=== PATIENT | female | born 1975 | race Caucasian/White ===

== ENCOUNTER → 2017-09-10 | Outpatient (CLI) | payer OTHER ==
[~2017-09-10] MED LIST: BETAMETHASONE ACE/NA PHOS 6 MG/ML (CELESTONE SOLUSPAN) ONE; CEPH500C PO; MULT-35 PO; PREN-37 PO
--- NOTE | 2017-09-10 15:52 | Diagnostic Imaging Report ---
INDICATION: Hypertension and evaluate growth. TECHNIQUE: Multiple real-time grayscale images were obtained over the gravid uterus. COMPARISON: None FINDINGS: There is a single live fetus in a transverse presentation with head to the maternal right. The placenta is anterior. Amniotic fluid index is 7.4 cm. heart rate was recorded at 132 beats per minute. Biophysical profile was performed with a score of 8/8. Biometrical measurements are as follows: Biparietal 8.49 cm, age 34 weeks 2 days. Head circumference 31.68 cm, age 35 weeks 5 days. Abdominal circumference 30.14 cm, age 34 weeks 1 days. Femur length 6.68 cm, age 34 weeks 3 days. Sonographic estimate age: 34 weeks 5 days. Sonographic estimated date of delivery: 10/17/2017. Estimated Weight: 2407 gm (+/- 352 gm). LMP percentile: N/A%. heart rate: 132 beats per minute. number: 1 of 1. IMPRESSION: Single live IUP at approximately 34 to 35 weeks gestational age. Biophysical profile score is 8/8. Dictated by: Dictated on workstation # [id number]
== END ==
LOC: RAD 14:04
PROVIDERS: ATTEND Family Medicine
DX: O44.43 Low lying placenta NOS or without hemorrhage, third trimester (principal); O16.3 Unspecified maternal hypertension, third trimester; Z3A.34 34 weeks gestation of pregnancy
CPT/HCPCS: 76805; 76819

== ENCOUNTER → 2017-09-11 | Outpatient (CLI) | payer OTHER ==
[~2017-09-11] MED LIST changes: -BETAMETHASONE ACE/NA PHOS 6 MG/ML (CELESTONE SOLUSPAN) ONE
== END ==
LOC: WSo 16:39
PROVIDERS: ATTEND Family Medicine
DX: Z36.84 Encounter for antenatal screening for fetal lung maturity (principal)
CPT/HCPCS: 96372

== ENCOUNTER → 2017-09-12 | Outpatient (CLI) | payer OTHER | LOC: WSo 17:10 | PROVIDERS: ATTEND Family Medicine | DX: Z36.84 Encounter for antenatal screening for fetal lung maturity (principal) | CPT/HCPCS: 96372 ==

== ENCOUNTER 2017-09-17 19:00 | Inpatient (IN) | payer OTHER ==
[~2017-09-17] VITALS: Ht 168.9 cm; Wt 67.8 kg
[2017-09-17 19:15] VITALS: BP 154/78
[2017-09-17] MEDS ORDERED: D5 LR IV SOLUTION 1,000 ML IV ONE (19:16)
--- OUTSIDE RECORDS SUMMARY | 2017-09-17 19:18 | XMS REPORT | Continuity of Care Document ---
Author Author [facility] Organization [facility] Address Unknown Phone Unavailable Care Team Providers Care Distribution Spec Name Role Phone SYED FIERRO MD PCP Insurance Providers Payer Name Policy Number Subscriber Name Relationship [employer] [id number] Dian Adam 19 Self / Same As Patient Advance Directives Directive Response Recorded Date/Time Advance Directives No 03/16/15 1:00pm Health Care Power of Triage Licensed Practical Nurse No 03/16/15 1:00pm Organ Donor No 03/16/15 1:00pm Resuscitation Status Full Code 03/16/15 1:00pm Problems No problem information available. Medications Current Home Medications Medication Dose Units Route Directions Days/Qty Instructions Start Date Multivitamin 1 Each 1 Tab Oral Daily 03/16/15 Cephalexin 500 Mg 500 Mg Oral Three Times A Day as needed for Sc 21 Social History Social History Problem Response Recorded Date/Time Alcohol Use Occasionally Uses 03/16/2015 1:00pm Recreational Drug Use No 03/16/2015 1:00pm Recent Foreign Travel No 03/16/2015 1:00pm Recent Infectious Disease Exposure No 03/16/2015 1:00pm Hospitalization with Isolation Denies 03/19/2015 11:50am Smoking Status Never a Smoker 03/16/2015 1:00pm Query Response Start Date Stop Date Smoking Status Never a Smoker Hospital Discharge Instructions No hospital discharge instructions. Plan of Care Discharge Date 03/19/15 11:10am Disposition 30 STILL A PATIENT Instructions/Education Provided Urinary Tract Infection in Women (DC) Prescriptions See Medication Section Additional Instructions/Education -DRINK PLENTY OF FLUIDS -CHECK TEMPERATURE, IF INCREASED FOLLOW UP WITH DR FIERRO OR GO TO ER -FOLLOW UP WITH DR FIERRO IN 1 WEEK. Functional Status Query Response Date Recorded Patient Orientation Person Place Time Situation March 19, 2015 11:50am Allergies, Adverse Reactions, Alerts Allergen Type Severity Reaction Status Last Updated Codeine Allergy Mild NAUSEA Active 03/16/15 Immunizations No immunization records. Vital Signs Acute Vital Signs Vital Response Date/Time Temperature (Fahrenheit) 96.6 degrees F (97.6 - 99.5) 03/19/2015 11:13am Temperature (Calculated Celsius) 35.41613 degrees C (36.4 - 37.5) 03/19/2015 6:13am Temperature Source Temporal 03/19/2015 11:13am Pulse Rate (adult) 67 bpm (60 - 90) 03/19/2015 11:13am Respiratory Rate 20 bpm (12 - 24) 03/19/2015 11:13am O2 Sat by Pulse Oximetry 96 % (88 - 100) 03/19/2015 11:13am Blood Pressure 109/71 mm Hg 03/19/2015 11:13am Blood Pressure Mean 84 mm Hg 03/19/2015 6:13am Pain Pain Intensity 0 03/19/2015 6:13am Height (Feet) 5 feet 03/16/2015 1:00pm Height (Inches) 6.00 inches 03/16/2015 1:00pm Height (Calculated Centimeters) 167.042736 cm 03/16/2015 1:00pm Weight (Pounds) 115 pounds 03/19/2015 6:13am Weight (Ounces) 12.8 oz 03/19/2015 6:13am Weight (Calculated Grams) 44452.997 gm 03/19/2015 6:13am Weight (Calculated Kilograms) 52.935608 kilograms 03/19/2015 6:13am Calculated BMI 18.56 03/16/2015 1:00pm Results Laboratory Results Test Name Result Units Flags Reference Collection Date/Time Result Date/ Time Comments White Blood Count 11.0 10^3/uL 4.3-11.0 03/19/2015 5:34am 03/19/2015 6: 40am Red Blood Count 3.79 10^6/uL L 4.35-5.85 03/19/2015 5:34am 03/19/2015 6: 40am Hemoglobin 11.9 G/DL 11.5-16.0 03/19/2015 5:34a03/19/2015 6:40am Hematocrit 35 % 35-52 03/19/2015 5:34a 03/19/2015 6:40am Mean Corpuscular Volume 91 FL 80-99 03/19/2015 5:03/19/2015 6: 40am Mean Corpuscular Hemoglobin 31 PG 25-34 03/19/2015 5:34a 03/19/2015 6: 40am Mean Corpuscular Hemoglobin Concent 34 G/DL 32-36 03/19/2015 5:34a11/2014 6:40am Red Cell Distribution Width 13.6 % 10.0-14.5 03/19/2015 5: 2014 6:40am Platelet Count 262 10^3/uL 130-400 03/19/2015 5:34a 03/19/2015 6:40am Mean Platelet Volume 11.1 FL H 7.4-10.4 03/19/2015 5:34a 03/19/2015 6: 40am Neutrophils (%) (Auto) 88 % H 42-75 03/16/2015 1:16pm 03/16/2015 1:28pm Lymphocytes (%) (Auto) 3 % L 12-44 03/16/2015 1:16pm 03/16/2015 1:28pm Monocytes (%) (Auto) 9 % 0-12 03/16/2015 1:16pm 03/16/2015 1:28pm Eosinophils (%) (Auto) 0 % 0-10 03/16/2015 1:16pm 03/16/2015 1:28pm Basophils (%) (Auto) 0 % 0-10 03/16/2015 1:16pm 03/16/2015 1:28pm Neutrophils # (Auto) 25.4 X 10^3 H 1.8-7.8 03/16/2015 1:16pm 03/16/2015 1 :28pm Lymphocytes # (Auto) 0.8 X 10^3 L 1.0-4.0 03/16/2015 1:16pm 03/16/2015 1: 28pm Monocytes # (Auto) 2.5 X 10^3 H 0.0-1.0 03/16/2015 1:16pm 03/16/2015 1: 28pm Eosinophils # (Auto) 0.0 10^3/uL 0.0-0.3 03/16/2015 1:16pm 03/16/2015 1 :28pm Basophils # (Auto) 0.0 10^3/uL 0.0-0.1 03/16/2015 1:16pm 03/16/2015 1: 28pm Neutrophils % (Manual) 73 % 03/16/2015 1:16pm 03/16/2015 1:57pm Band Neutrophils 18 % 03/16/2015 1:16pm 03/16/2015 1:57pm Lymphocytes % (Manual) 5 % 03/16/2015 1:16pm 03/16/2015 1:57pm Monocytes % (Manual) 4 % 03/16/2015 1:16pm 03/16/2015 1:57pm Eosinophils % (Manual) 0 % 03/16/2015 1:16pm 03/16/2015 1:57pm Basophils % (Manual) 0 % 03/16/2015 1:16pm 03/16/2015 1:57pm Blood Morphology Comment NORMAL 03/16/2015 1:16pm 03/16/2015 1: 57pm Urine Color YELLOW 03/18/2015 10:18am 03/18/2015 8:40pm Urine Clarity CLEAR 03/18/2015 10:18am 03/18/2015 8:40pm Urine pH 7 5-9 03/18/2015 10:1803/18/2015 8:40pm Urine Specific [place] 1.010 * 1.016-1.022 03/18/2015 10:182014 8:40pm Urine Protein NEGATIVE NEGATIVE 03/18/2015 10:1803/18/2015 8:40pm Urine Glucose (UA) NEGATIVE NEGATIVE 03/18/2015 10:03/18/2015 8: 40pm Urine RBC (Auto) 4+ * NEGATIVE 03/18/2015 10:1803/18/2015 8:40pm Urine Ketones NEGATIVE NEGATIVE 03/18/2015 10:03/18/2015 8:40pm Urine Nitrite NEGATIVE NEGATIVE 03/18/2015 10:03/18/2015 8:40pm Urine Bilirubin NEGATIVE NEGATIVE 03/18/2015 10:18am 03/18/2015 8: 40pm Urine Urobilinogen NORMAL MG/DL NORMAL 03/18/2015 10:1803/18/2015 8: 40pm Urine Leukocyte Esterase 1+ * NEGATIVE 03/18/2015 10:18am 03/18/2015 8: 40pm Urine RBC 10-25 /HPF * 03/18/2015 10:18am 03/18/2015 8:40pm Urine WBC 5-10 /HPF * 03/18/2015 10:18am 03/18/2015 8:40pm Urine Bacteria FEW /HPF * 03/18/2015 10:18am 03/18/2015 8:40pm Urine Squamous Epithelial Cells 5-10 /HPF 03/18/2015 10:18am 2014 8:40pm Urine Crystals NONE /[facility] 03/18/2015 10:18am 03/18/2015 8:40pm Urine Amorphous Sediment FEW GARETH URATES /[facility] * 03/17/2015 5:35am 03/17 6:14am Urine Casts NONE /[facility] 03/18/2015 10:18am 03/18/2015 8:40pm Urine Mucus NEGATIVE /[facility] 03/18/2015 10:18am 03/18/2015 8:40pm Urine Culture Indicated NO 03/18/2015 10:1803/18/2015 8:40pm Sodium Level 140 MMOL/L 135-145 03/19/2015 5:34a03/19/2015 7:11am Potassium Level 3.1 MMOL/L L 3.6-5.0 03/19/2015 5:34a03/19/2015 7:11am Chloride Level 109 MMOL/L H 98-107 03/19/2015 5:34a03/19/2015 7:11am Carbon Dioxide Level 21 MMOL/L 21-32 03/19/2015 5:34a03/19/2015 7: 11am Anion Gap 10 MMOL/L 5-14 03/19/2015 5:34a03/19/2015 7:11am Blood Urea Nitrogen 12 MG/DL 7-18 03/19/2015 5:34a03/19/2015 7:11am Creatinine 0.59 MG/DL L 0.60-1.30 03/19/2015 5:34a03/19/2015 7:11am BUN/Creatinine Ratio 20 03/19/2015 5:34a03/19/2015 7:11am Estimat Glomerular Filtration Rate > 60 03/19/2015 5:34a2014 7:11am GFR INTERPRETIVE DATA UNITS FOR ESTIMATED GFR (eGFR): mL/min/1.73 M2 REFERENCE RANGE FOR ESTIMATED GFR (eGFR) eGFR NORMAL eGFR >60 MODERATELY DECREASED eGFR 30-59 SEVERLY DECREASED eGFR 15-29 KIDNEY FAILURE <15 (OR DIALYSIS) Glucose Level 87 MG/DL 70-105 03/19/2015 5:34am 03/19/2015 7:11am Calcium Level 8.2 MG/DL L 8.5-10.1 03/19/2015 5:34am 03/19/2015 7:11am Magnesium Level 1.7 MG/DL L 1.8-2.4 03/19/2015 5:34am 03/19/2015 7:11am Total Bilirubin 0.6 MG/DL 0.1-1.0 03/18/2015 4:47am 03/18/2015 5:38am Direct Bilirubin 0.3 MG/DL 0.0-0.3 03/18/2015 4:47am 03/18/2015 5:38am Indirect Bilirubin 0.3 MG/DL 03/18/2015 4:47am 03/18/2015 5:38am Alkaline Phosphatase 161 U/L H 40-136 03/18/2015 4:47am 03/18/2015 5: 38am Aspartate Amino Transf (AST/SGOT) 15 U/L 5-34 03/18/2015 4:47am 2014 5:38am Alanine Aminotransferase (ALT/SGPT) 14 U/L 0-55 03/18/2015 4:47am 03/18 5:38am Total Protein 5.4 G/DL L 6.4-8.2 03/18/2015 4:47am 03/18/2015 5:38am Albumin 2.6 G/DL L 3.2-4.5 03/18/2015 4:47am 03/18/2015 5:38am Microbiology Results Procedure Source Result Collection Date/Time Result Date/Time Urine Culture Urine, Clean Catch ESCHERICHIA COLI 03/16/2015 5:40pm 2014 12:46pm Urine Culture Urine, Clean Catch NO GROWTH 03/17/2015 5:35am 03/18/2015 7: 22am Procedures Procedure Status Date Provider(s) Color Doppler echocardiography Completed 03/18/15 SYED FIERRO MD Encounters Encounter Location Arrival/Admit Date Discharge/Depart Date Attending Provider Discharged Inpatient [facility] 03/17/15 8:16am 11:10am SYED FIERRO MD
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
[2017-09-17] MEDS ORDERED: DINOPROSTONE 10 MG (CERVIDIL) INSERT PV NR (19:30)
[2017-09-17] MEDS: D5 LR IV SOLUTION 1,000 ML IV SCH (20:19)
[2017-09-17 20:20] VITALS: BP 141/79
[2017-09-17 20:52] LABS: BASOPHILS % (AUTO) 0 % (0-10); EOSINOPHILS # (AUTO) 0.1 10^3/uL (0.0-0.3); EOSINOPHILS % (AUTO) 0 % (0-10); HEMATOCRIT 33 % (35-52); HEMOGLOBIN 11.2 G/DL (11.5-16.0); LYMPHOCYTES # (AUTO) 3.1 X 10^3 (1.0-4.0); LYMPHOCYTES % (AUTO) 18 % (12-44); MEAN CORPUSCULAR HEMOGLOBIN 33 PG (25-34); MEAN CORPUSCULAR HGB CONC 34 G/DL (32-36); MEAN CORPUSCULAR VOLUME 99 FL (80-99); MONOCYTES # (AUTO) 1.3 X 10^3 (0.0-1.0); MONOCYTES % (AUTO) 8 % (0-12); NEUTROPHILS # (AUTO) 12.4 X 10^3 (1.8-7.8); NEUTROPHILS % (AUTO) 74 % (42-75); PLATELET COUNT 288 10^3/uL (130-400); RED BLOOD COUNT 3.36 10^6/uL (4.35-5.85); WHITE BLOOD COUNT 16.9 10^3/uL (4.3-11.0)
[2017-09-17 21:08] LABS: BAND NEUTROPHILS 9 %; BASOPHILS % (MANUAL) 0 %; EOSINOPHILS % (MANUAL) 0 %; LYMPHOCYTES % (MANUAL) 23 %; METAMYELOCYTES % 1 %; MONOCYTES % (MANUAL) 1 %; NEUTROPHILS % (MANUAL) 66 %; RBC MORPH NORMAL
[2017-09-17 21:20] VITALS: BP 144/88
[2017-09-17] MEDS ORDERED: CATHETER FLUSH 10 ML SYR IV SCH (22:00)
[2017-09-17 22:23] VITALS: BP 142/99
[2017-09-17 23:20] VITALS: BP 139/84
[2017-09-18] VITALS (19 sets, daily range): BP systolic 131–172; BP diastolic 0–106
[2017-09-18] MEDS: ACETAMINOPHEN 500 MG TAB (TYLENOL) PO PRN ×3 (02:42→14:32)
[2017-09-18] MEDS: D5 LR IV SOLUTION 1,000 ML IV SCH ×3 (04:15→22:38)
[2017-09-18] MEDS ORDERED: INFLUENZA TRIvalent 2017-2018 0.5 ML/45 MCG SYR IM ONE (07:15)
--- NOTE | 2017-09-18 08:06 | History & Physical-OB ---
OB - Chief Complaint & HPI Date/Time Date of Admission: Date of Admission: Sep 17, 2017 at 19:00 Time Seen by Provider: 08:01 Chief Complaint/History OB-Reason for Admission/Chief: Induction of Labor Hx : 4 Hx Para: 3 Expected Date of Delivery: Sep 29, 2017 Gestational Age in Weeks: 38 Gestational Age in Days: 2 Indication for induction: medical complication (gestational hypertension, possible IUGR) History of Labs O+, antibody neg, RI. HIV/HepB/RPR NR. GC/chlamydia neg. 1 hour glucola normal. GBS neg. Other Possibly unstable lie- was transverse at 37 weeks, spontaneously reverted to vertex. Allergies and Home Medications Allergies Coded Allergies: codeine (Verified Allergy, Mild, NAUSEA, 05/11/15) Home Medications Vit/Iron Fumarate/FA 1 Each Tablet, 1 EACH PO DAILY, (Reported) Patient Home Medication List Home Medication List Reviewed: Yes OB - History Hx of Present Care: Yes (limited, started in [place], period of not being seen, established here at 36 weeks.) Obstetrical Complications: Gestational Hypertension, Growth Restriction ( possible- US at 37 weeks measuring 2w4d below LMP dates), Other Information Induced Hypertension: Yes Maternal Gestational Diabetes: No Hemorrhage: No Obstetrical History Hx : 4 Hx Para: 3 Hx # Term Pregnancies: 3 Hx # Pregnancies: 0 Number of Living Children: 3 Hx Termination: No Hx Multiple Gestation: No Hx Ectopic : No Hx Stillbirth: No Hx Complication: No Hx Induced Hypertens: Yes Hx Maternal Gestational Diabet: No Hx Hemorrhage: No Delivery History Hx Dystocia: No Hx Forceps Assisted Delivery: No Hx Vacuum Extraction Assisted: No Hx Placenta Abnormality: No Hx Distress: No Hx Large For Gestational Age I: No Hx Small for Gestational Age I: No Hx Section: No Hx Vaginal Delivery Post C-Sec: No Hx Blood Disorders: No Adverse Rxn to Tranfusion: No Patient Past Medical History no chronic medical problems or surgeries Social History/Family History HIV/AIDS: No Recent Infectious Disease Expo: No Sexually Transmitted Disease: No Alcohol Use: Denies Use Recreational Drug Use: No Smoking Cessation: Never smoker Immunizations Tetanus Booster (TDap): More than 5yrs Rubella: immune RPR/VDRL: Negative GBS Status: Negative HBsAG: Negative OB - Admission Exam Physical Exam Vitals: Vital Signs 09/18/17 05:06 Temp 99.4 Pulse 80 Resp 18 B/P (MAP) 153/87 (109) O2 Delivery Room Air HEENT: NCAT Abdomen: Non tender Extremities: Edema (trace) Cervical Dilatation: 1cm Effacement: 0% Station: Ballotable Membranes: Intact Heart Rate: 140's Accelerations: Accelerations Present Decelerations: No Decelerations Short Term Variability: Present Half-Way Variability: Average (6-25) Contractions on Admission: None Pemberton Scoring Tool (Modified) Dilation (cm): 1-2cm (1) Effacement (%): 0-30% (0) Descent/Station: -3 (0) Cervix Consistency: Medium(1) Cervix Position: Middle/Mid-Position (1) Add 1 point for: Each previous vaginal delivery (1) (3) Pember[place] Score: 6 Labs Laboratory Tests Test 09/17/17 20:05 Range/Units White Blood Count 16.9 H 4.3-11.0 10^3/uL Red Blood Count 3.36 L 4.35-5.85 10^6/uL Hemoglobin 11.2 L 11.5-16.0 G/DL Hematocrit 33 L 35-52 % Mean Corpuscular Volume 99 80-99 FL Mean Corpuscular Hemoglobin 33 25-34 PG Mean Corpuscular Hemoglobin Concent 34 32-36 G/DL Red Cell Distribution Width 13.0 10.0-14.5 % Platelet Count 288 130-400 10^3/uL Mean Platelet Volume 11.0 H 7.4-10.4 FL Neutrophils (%) (Auto) 74 42-75 % Lymphocytes (%) (Auto) 18 12-44 % Monocytes (%) (Auto) 8 0-12 % Eosinophils (%) (Auto) 0 0-10 % Basophils (%) (Auto) 0 0-10 % Neutrophils # (Auto) 12.4 H 1.8-7.8 X 10^3 Lymphocytes # (Auto) 3.1 1.0-4.0 X 10^3 Monocytes # (Auto) 1.3 H 0.0-1.0 X 10^3 Eosinophils # (Auto) 0.1 0.0-0.3 10^3/uL Basophils # (Auto) 0.0 0.0-0.1 10^3/uL Neutrophils % (Manual) 66 % Lymphocytes % (Manual) 23 % Monocytes % (Manual) 1 % Eosinophils % (Manual) 0 % Basophils % (Manual) 0 % Metamyelocytes % 1 % Band Neutrophils 9 % Blood Morphology Comment NORMAL OB - Assessment/Plan/Diagnosis Assessment Assessment: induction of labor, other (GHTN, possible IUGR, AMA, possible unstable lie) Admission Dx Induction of labor at 38 weeks due to gestational hypertension Admission Status: Inpatient Order (span 2 midnights) Reason for Inpatient Admission: Anticipate delivery of requiring significant recovery time of up to 2 nights or more depending on delivery and course. Plan Plan: Induction Other Plan Induction: Cervidil given overnight with no response, with [place] indeterminate range, discussed starting pitocin versus a trial of misoprostol, will proceed with misoprostol and re-eval 4 hours after first dose. GHTN: monitor closely- BP high but not at treatment range so far. Possible unstable lie- vertex at time of my exam this am, monitor closely given US documented transverse at 37 weeks with spontaneous resolution before consult with Dr. Dietrich. While currently vertex, is not engaged, so will continue to monitor very closely. Copy Copies To 1: MARCELO PALACIOS MD, BETHANY N MD Sep 18, 2017 08:06
[2017-09-18] MEDS ORDERED: MISOPROSTOL 100 MCG (CYTOTEC) TAB PV SCH (08:20)
[2017-09-18] MEDS ORDERED: OXYTOCIN/NORMAL SALINE 500 ML IV SCH ×2 (12:19→16:07)
[2017-09-18] MEDS ORDERED: LABETALOL HCL 20 MG/4 ML VIAL IV ONE (14:30)
[2017-09-18 14:48] LABS: HEMOGLOBIN 12.1 G/DL (11.5-16.0); MEAN PLATELET VOLUME 10.7 FL (7.4-10.4); RED BLOOD COUNT 3.65 10^6/uL (4.35-5.85); RED CELL DISTRIBUTION WIDTH 13.1 % (10.0-14.5); WHITE BLOOD COUNT 16.4 10^3/uL (4.3-11.0)
[2017-09-18 15:15] LABS: ALANINE AMINOTRANSFERASE 12 U/L (0-55); ALBUMIN 3.3 GM/DL (3.2-4.5); ALKALINE PHOSPHATASE 118 U/L (40-136); BILIRUBIN,TOTAL 0.6 MG/DL (0.1-1.0); BUN/CREATININE RATIO 7; CALCIUM 8.7 MG/DL (8.5-10.1); CARBON DIOXIDE 24 MMOL/L (21-32); CHLORIDE 106 MMOL/L (98-107); CREATININE SERUM 0.59 MG/DL (0.60-1.30); GFR ESTIMATED > 60; GLUCOSE 94 MG/DL (70-105); POTASSIUM 3.5 MMOL/L (3.6-5.0); SODIUM 135 MMOL/L (135-145); TOTAL PROTEIN 6.5 GM/DL (6.4-8.2); URIC ACID 3.5 MG/DL (2.6-7.2)
[2017-09-18] MEDS ORDERED: LACTATED RINGERS 1,000 ML IV ONE (15:19)
[2017-09-18] MEDS ORDERED: FAMOTIDINE 20MG/2ML IV (PEPCID) IV ONE (15:30)
[2017-09-18] MEDS ORDERED: METOCLOPRAMIDE INJ 10 MG/2 ML (REGLAN) IV ONE (15:30)
[2017-09-18] MEDS ORDERED: CITRIC ACID/SOB CIT (BICITRA) 30 ML UDC PO ONE (15:30)
[2017-09-18] MEDS ORDERED: OXYTOCIN/NORMAL SALINE 1,000 ML IV ONE (15:35)
[2017-09-18] MEDS ORDERED: fentaNYL INJECTION 100 MCG/2 ML AMP ONE (15:36)
[2017-09-18] MEDS ORDERED: ceFAZolin 1,000 MG (ANCEF) VIAL ONE (15:55)
[2017-09-18] MEDS ORDERED: NS (IVPB) 100 ML ONE (15:56)
--- NOTE | 2017-09-18 16:00 | Progress Note-Pre Operative ---
Pre-Operative Progress Note H&P Reviewed The H&P was reviewed, patient examined and no changes noted. Date Seen by Provider: Sep 18, 2017 Time Seen by Provider: 15:45 Date H&P Reviewed: Sep 18, 2017 Time H&P Reviewed: 15:45 Pre-Operative Diagnosis: Malpresentation, GHTN, YURIY RODARTE DO Sep 18, 2017 4:00 pm
--- NOTE | 2017-09-18 16:02 | Labor Progress Note ---
Labor Progress Note Labor Progress Note Date Seen by Provider: Sep 18, 2017 Time Seen by Provider: 14:55 Subjective: Pt denies complaints. Objective: Cervical exam: 3/thick/high Presentation: footling breech heart tones: 140 beats per minute, moderate variability, reactive Tocometer: 3 ctx/10 minutes Assessment/Plan: Dian Irvin is a 41 /Para 4 / 3,Gestational Age (wks)38 here for IOL for GHTN and possible IUGR. Episode of bleeding about 1400 followed by persistent lower abdominal pain concerning for partial abruption. Additionally BP up to 170s/80s, gave labetalol 20 mg with good response. On my evaluation noted that had moved to breech position, consulted Dr. Dietrich and plan to proceed with . Vitals - Labs Vital Signs - I&O Vital Signs 09/18/17 09/18/17 12:45 13:30 Temp 98.6 Pulse 86 Resp 18 B/P (MAP) 157/81 (106) O2 Delivery Room Air Labs Laboratory Tests 09/17/17 20:05: White Blood Count 16.9H, Red Blood Count 3.36L, Hemoglobin 11.2L, Hematocrit 33L , Mean Corpuscular Volume 99, Mean Corpuscular Hemoglobin 33, Mean Corpuscular Hemoglobin Concent 34, Red Cell Distribution Width 13.0, Platelet Count 288, Mean Platelet Volume 11.0H, Neutrophils (%) (Auto) 74, Lymphocytes (%) (Auto) 18 , Monocytes (%) (Auto) 8, Eosinophils (%) (Auto) 0, Basophils (%) (Auto) 0, Neutrophils # (Auto) 12.4H, Lymphocytes # (Auto) 3.1, Monocytes # (Auto) 1.3H, Eosinophils # (Auto) 0.1, Basophils # (Auto) 0.0, Neutrophils % (Manual) 66, Lymphocytes % (Manual) 23, Monocytes % (Manual) 1, Eosinophils % (Manual) 0, Basophils % (Manual) 0, Metamyelocytes % 1, Band Neutrophils 9, Blood Morphology Comment NORMAL 09/18/17 14:42: White Blood Count 16.4H, Red Blood Count 3.65L, Hemoglobin 12.1, Hematocrit 36, Mean Corpuscular Volume 98, Mean Corpuscular Hemoglobin 33, Mean Corpuscular Hemoglobin Concent 34, Red Cell Distribution Width 13.1, Platelet Count 307, Mean Platelet Volume 10.7H, Sodium Level 135, Potassium Level 3.5L, Chloride Level 106, Carbon Dioxide Level 24, Anion Gap 5, Blood Urea Nitrogen 4L, Creatinine 0.59L, Estimat Glomerular Filtration Rate > 60, BUN/Creatinine Ratio 7, Glucose Level 94, Uric Acid 3.5, Calcium Level 8.7, Total Bilirubin 0.6, Aspartate Amino Transf (AST/SGOT) 12, Alanine Aminotransferase (ALT/SGPT) 12, Alkaline Phosphatase 118, Lactate Dehydrogenase 333H, Total Protein 6.5, Albumin 3.3 09/18/17 14:43: Urine Protein 13H, Urine Creatinine 29L, Urine Protein/Creatinine Ratio 0.45 MARCELO PALACIOS MD Sep 18, 2017 4:02 pm
[2017-09-18] MEDS ORDERED: ONDANSETRON 4 MG/2 ML (SDV) Z0FRAN IVP PRN (16:15)
[2017-09-18] MEDS ORDERED: HYDROmorphone (DILAUDID) 2 MG/ML VIAL IVP PRN (16:15)
[2017-09-18] MEDS ORDERED: MEASLES,MUMPS,RUBELLA 1 EA INJ SC SCH (16:15)
[2017-09-18] MEDS ORDERED: TETANUS,DIPTH,PERTUSS P/F (BOOSTRIX) 0.5 ML VIAL IM SCH (16:15)
[2017-09-18] MEDS ORDERED: PHENYLEPHRINE 100 MCG/ML 10 ML (ANESTHESIA) SYR ONE (16:22)
[2017-09-18] MEDS ORDERED: ONDANSETRON 4 MG/2 ML (SDV) Z0FRAN ONE (16:23)
[2017-09-18] MEDS: KETOROLAC 30 MG/ML VIAL IVP SCH (17:26)
[2017-09-18] MEDS: LABETALOL 200 MG (NORMODYNE) TAB PO SCH ×2 (18:13→21:00)
[2017-09-18] MEDS: HYDROcodone/APAP 5 MG/325 MG (LORTAB) TAB PO PRN ×2 (18:13→22:34)
[2017-09-18] MEDS: DOCUSATE SODIUM 100 MG (COLACE) CAP PO SCH (20:32)
[2017-09-18] MEDS ORDERED: CATHETER FLUSH 10 ML SYR IV SCH (22:00)
[2017-09-19] VITALS: BP 129/82
[2017-09-19] MEDS: KETOROLAC 30 MG/ML VIAL IVP SCH ×3 (00:04→22:08)
--- NOTE | 2017-09-19 02:01 | OPERATIVE REPORT ---
DATE OF SERVICE: PREOPERATIVE DIAGNOSES: 1. A 41-year-old female with malpresentation. 2. Gestational hypertension, progression to mild preeclampsia. 3. Advanced maternal age. 4. Suspected placental abruption with vaginal bleeding intrapartum. POSTOPERATIVE DIAGNOSES: 1. A 41-year-old female with malpresentation. 2. Gestational hypertension, progression to mild preeclampsia. 3. Advanced maternal age. 4. Suspected placental abruption with vaginal bleeding intrapartum. PROCEDURES: Primary low transverse section, risk reducing bilateral salpingectomy. SURGEON: Timothy Keene DO. LEASING REPRESENTATIVE: ALVARO Mccormick. ANESTHESIA: Spinal. ESTIMATED BLOOD LOSS: 600 mL. URINE OUTPUT: 75 mL clear at the end of the procedure. FLUIDS: 2000 mL of lactated Ringer solution. FINDINGS: Live male infant weighing 5 pounds 8 ounces, Apgars of 9 and 9, and grossly normal appearing uterus, bilateral fallopian tubes and ovaries. SPECIMENS SENT: Placenta and bilateral fallopian tubes. INDICATIONS FOR PROCEDURE: This 41-year-old female was admitted for induction due to mild preeclampsia as well as finding of malpresentation earlier in her ; however, on Saturday, the ultrasound did reveal the patient was in vertex presentation. Therefore, admission for induction was proceeded with. She received cervical ripening overnight and was started on Pitocin this morning and made little to no progression to 2 cm and no engagement of any parts. Approximately, 3 o'clock this afternoon, the fetus was becoming difficult to monitor. Repeat ultrasound revealed the fetus in the breech presentation. Due to breech presentation and the vaginal bleeding that was starting to be noted at that time, the discussion was made to proceed with . Risks of the procedure were discussed with the patient previously in my preoperative consult in the office as well as the possibility of proceeding with risk reducing salpingectomy if she did end up needing a . Therefore, that was not discussed in detail today, but had previously been discussed in the office. I confirmed today that she wanted to proceed with risk reducing salpingectomy and she was agreeable to do so, so the consent was obtained and the patient was taken to the operating room. OPERATIVE REPORT IN DETAIL: Once in the operating room, spinal anesthesia was found to be adequate. She was placed in the supine position with leftward tilt, prepped and draped in normal sterile fashion. A Pfannenstiel skin incision was made with a knife after anesthesia was tested and timeout was performed. That incision is carried down to underlying fascia using Bovie cautery. The fascial incision was extended laterally using Bovie cautery. Superior aspect of fascial incision was then grasped with Luz clamps, tented up and dissected off the underlying rectus muscles. The inferior aspect of the fascial incision was then grasped with Luz clamps, tented up and dissected off the underlying rectus muscles. Rectus muscles were then dissected down the midline using blunt traction which exposed the peritoneum which I entered bluntly and extended using a blunt traction. I then placed the Jason ring retractor in the peritoneal incision, which offers excellent lateral sidewall retraction. I proceed with my low transverse incision using a knife and did this with a shallow swipe of the blade and then dissect the vesicouterine peritoneum off the lower uterine segment. I then proceeded with the myotomy until membranes were visualized at which point I extended the uterine incision laterally and superiorly using bandage scissors. Amniotomy was performed and clear fluid was noted. Infant was found in the breech presentation. With gentle fundal pressure, the 's buttocks were delivered through the incision. The body was rotated to look downward; however, at that point with another movement, the infant's head was delivered with arms with gentle extension of the body. The was then brought to the operative field where the cords were clamped and cut. The nares and oropharynx were bulb suctioned. was handed off to Dr. Momin, who was there for delivery. Cord blood was collected, 3-vessel cord with intact placenta was delivered spontaneously thereafter. IV Pitocin is initiated to facilitate uterine contraction. Uterine fundus becomes firmer upon manual massage. Uterus was then exteriorized and cleared of all endometrial clots and debris. I then proceeded to closing the uterine incision using 0 Vicryl suture in running locked fashion. Second layer of imbricating 0 Monocryl was placed. Excellent hemostasis is noted after doing so except for the left apex of the incision had some small amount of oozing. I did place 2 separate 3-0 [id number] Vicryl sutures in that area to control the bleeding which it does successfully. I then proceeded with bilateral salpingectomy using a LigaSure. I started at the proximal isthmic portion, bipolar cauterized and transected using the LigaSure, and take this down the mesosalpinx using the LigaSure to the distal ampullary connection point where the fallopian tube was then amputated. I did this on both sides to both fallopian tubes. I then placed the uterus back in the pelvis and copiously irrigated the pelvis using normal saline. There was no active bleeding noted from any of my dissection planes. I then placed Interceed antiadhesive over my left transverse incision and proceeded with closing the peritoneum using 3-0 Vicryl suture in running fashion. The rectus muscle reapproximated using 3-0 Vicryl suture in an interrupted fashion. The fascia was reapproximated using 0 Vicryl suture in running fashion. The subcutaneous tissue was reapproximated using 3-0 plain in an interrupted subcutaneous stitch and the skin was reapproximated using 4-0 Monocryl and a running subcuticular. Dermabond was applied to incision. A sterile dressing was adhesed with white tape. The patient tolerated the procedure well, taken to the recovery area in stable condition. Lap and sponge count were correct at the end of the procedure. Instrument count was correct as well. A 1 gram of Ancef was given intraoperatively for infection prophylaxis. Job ID: [id number] DocumentID: [id number] Dictated Date: 09/18/2017 17:09:32 Oil Pipe Inspector Date: 09/19/2017 02:01:01 Dictated By: TIMOTHY KEENE DO
[2017-09-19 04:32] VITALS: BP 144/82
[2017-09-19] MEDS: HYDROcodone/APAP 5 MG/325 MG (LORTAB) TAB PO PRN ×4 (04:32→19:42)
[2017-09-19] MEDS: D5 LR IV SOLUTION 1,000 ML IV SCH (04:42)
[2017-09-19 06:01] LABS: BASOPHILS % (AUTO) 0 % (0-10); EOSINOPHILS # (AUTO) 0.1 10^3/uL (0.0-0.3); EOSINOPHILS % (AUTO) 0 % (0-10); HEMATOCRIT 27 % (35-52); HEMOGLOBIN 9.2 G/DL (11.5-16.0); LYMPHOCYTES # (AUTO) 2.5 X 10^3 (1.0-4.0); LYMPHOCYTES % (AUTO) 16 % (12-44); MEAN CORPUSCULAR HEMOGLOBIN 33 PG (25-34); MEAN CORPUSCULAR HGB CONC 34 G/DL (32-36); MEAN CORPUSCULAR VOLUME 99 FL (80-99); MEAN PLATELET VOLUME 10.5 FL (7.4-10.4); MONOCYTES # (AUTO) 1.1 X 10^3 (0.0-1.0); MONOCYTES % (AUTO) 7 % (0-12); NEUTROPHILS # (AUTO) 11.7 X 10^3 (1.8-7.8); NEUTROPHILS % (AUTO) 76 % (42-75); PLATELET COUNT 279 10^3/uL (130-400); RED BLOOD COUNT 2.76 10^6/uL (4.35-5.85); RED CELL DISTRIBUTION WIDTH 12.9 % (10.0-14.5); WHITE BLOOD COUNT 15.4 10^3/uL (4.3-11.0)
--- NOTE | 2017-09-19 07:13 | Discharge Inst-Women's Service ---
Discharge Inst-Women's Serv Depart Medication/Instructions New, Converted or Re-Newed RX: RX on Chart Consults/Follow Up Additional Follow Up: Yes Orders/Referrals Dr. Dietrich in 7-[address] Momin in 6 weeks Activity Activity: Activity as Tolerated Driving Instructions: No Driving for 1 Week NO SMOKING: NO SMOKING Nothing Inside Vagina: No Douching, No [place], No Tampons Diet Discharge Diet: No Restrictions Symptoms to Report to : Bleeding Excessive, Pain Increased, Fever Over 101 Degrees F, Vaginal Bleeding Increase, Questions/Concerns For Any Problems or Questions: Contact Your Physician Skin/Wound Care Infection Signs and Symptoms: Increased Redness, Foul Odor of Wound, Increased Drainage, Skin Itchy or Has a Rash, Increased Swelling, Temperature Above 101 F Operative Area Clean and Dry: Keep Incision Clean/Dry Stitches/[place]/Dermabond: Dermabond, Care of Stitches Bathing Instructions: YURIY Jimenez DO Sep 19, 2017 7:13 am
[2017-09-19] MEDS ORDERED: ACHD5005 PO (07:15)
[2017-09-19] MEDS ORDERED: IBUP-1773 PO (07:15)
[2017-09-19] MEDS ORDERED: LABE200T3 PO (07:15)
[2017-09-19] MEDS ORDERED: DOCU100C37 PO (07:15)
--- NOTE | 2017-09-19 08:40 | Postpartum Progress Note ---
Note Note Day # 1 Subjective: Patient is without complaints. Ambulating, voiding. Tolerating a regular diet without nausea or vomiting. Normal lochia. Pain is well controlled with oral pain medications. Objective: Vital Sign - Last 24 Hours 09/18/17 09/18/17 09/18/17 09/18/17 08:50 09:00 09:50 10:00 Pulse 83 76 Resp 18 18 B/P (MAP) 160/87 (111) 131/66 (87) O2 Delivery Room Air Room Air Room Air Room Air 09/18/17 09/18/17 09/18/17 09/18/17 11:00 12:30 12:45 13:00 Temp 98.6 Pulse 80 93 85 Resp 18 18 18 B/P (MAP) 171/87 (115) 166/90 (115) 150/79 (102) O2 Delivery Room Air Room Air Room Air Room Air 09/18/17 09/18/17 09/18/17 09/18/17 13:15 13:30 13:45 14:00 Pulse 85 86 85 Resp 18 18 18 18 B/P (MAP) 162/78 (106) 157/81 (106) 172/89 (116) O2 Delivery Room Air Room Air Room Air Room Air 09/18/17 09/18/17 09/18/17 09/18/17 14:15 14:30 14:33 14:45 Pulse 85 83 80 81 Resp 18 18 18 18 B/P (MAP) 151/84 (106) 153/84 (107) 146/81 (102) 132/0 (44) O2 Delivery Room Air Room Air Room Air Room Air 09/18/17 09/18/17 09/18/17 09/18/17 15:00 15:15 15:30 15:45 Pulse 81 88 85 Resp 18 18 18 18 B/P (MAP) 144/94 (111) 170/106 (127) 147/85 (105) O2 Delivery Room Air Room Air Room Air Room Air 09/18/17 09/18/17 09/19/17 09/19/17 20:23 20:30 00:00 04:32 Temp 96.9 97.1 97.6 Pulse 87 94 103 Resp 18 18 18 B/P (MAP) 131/85 (100) 129/82 (98) 144/82 (102) Pulse Ox 95 95 O2 Delivery Room Air Room Air Room Air Room Air Intake and Output 09/18/17 09/18/17 09/19/17 15:00 23:00 07:00 Intake Total 1240 ml 1950 ml Output Total 275 ml 1200 ml Balance 965 ml 750 ml Laboratory Tests 09/19/17 05:26: White Blood Count 15.4H, Red Blood Count 2.76L, Hemoglobin 9.2#L, Hematocrit 27L , Mean Corpuscular Volume 99, Mean Corpuscular Hemoglobin 33, Mean Corpuscular Hemoglobin Concent 34, Red Cell Distribution Width 12.9, Platelet Count 279, Mean Platelet Volume 10.5H, Neutrophils (%) (Auto) 76H, Lymphocytes (%) (Auto) 16, Monocytes (%) (Auto) 7, Eosinophils (%) (Auto) 0, Basophils (%) (Auto) 0, Neutrophils # (Auto) 11.7H, Lymphocytes # (Auto) 2.5, Monocytes # (Auto) 1.1H, Eosinophils # (Auto) 0.1, Basophils # (Auto) 0.0 Physical Exam: General - Alert and oriented, no apparent distress Abdomen - Soft, appropriately tender to palpation, non-distended, fundus firm at umbilicus Extremities - no edema, negative Jose's bilaterally Incision - c/d/i Assessment: POD 1 PLTCS- Breech presentation Suspected partial abruption Mild PreE Acute blood loss anemia Plan: Routine care. Encourage breast feeding. Encourage ambulation. Ferrous sulfate supplementation. Plan for discharge tomorrow Vitals - Labs Vital Signs - I&O Vital Signs Date Time Temp Pulse Resp B/P (MAP) Pulse Ox O2 Delivery O2 Flow Rate FiO2 09/19/17 04:32 97.6 103 18 144/82 (102) Room Air 09/19/17 00:00 97.1 94 18 129/82 (98) 95 Room Air 09/18/17 20:30 96.9 87 18 131/85 (100) 95 Room Air 09/18/17 20:23 Room Air 09/18/17 15:45 85 18 147/85 (105) Room Air 09/18/17 15:30 18 Room Air 09/18/17 15:15 88 18 170/106 (127) Room Air 09/18/17 15:00 81 18 144/94 (111) Room Air 09/18/17 14:45 81 18 132/0 (44) Room Air 09/18/17 14:33 80 18 146/81 (102) Room Air 09/18/17 14:30 83 18 153/84 (107) Room Air 09/18/17 14:15 85 18 151/84 (106) Room Air 09/18/17 14:00 18 Room Air 09/18/17 13:45 85 18 172/89 (116) Room Air 09/18/17 13:30 86 18 157/81 (106) Room Air 09/18/17 13:15 85 18 162/78 (106) Room Air 09/18/17 13:00 85 18 150/79 (102) Room Air 09/18/17 12:45 98.6 93 18 166/90 (115) Room Air 09/18/17 12:30 80 18 171/87 (115) Room Air 09/18/17 11:00 Room Air 09/18/17 10:00 Room Air 09/18/17 09:50 76 18 131/66 (87) Room Air 09/18/17 09:00 Room Air 09/18/17 08:50 83 18 160/87 (111) Room Air I & O 09/19/17 07:00 Intake Total 3190 ml Output Total 1475 ml Balance 1715 ml Labs Laboratory Tests 09/18/17 14:42: White Blood Count 16.4H, Red Blood Count 3.65L, Hemoglobin 12.1, Hematocrit 36, Mean Corpuscular Volume 98, Mean Corpuscular Hemoglobin 33, Mean Corpuscular Hemoglobin Concent 34, Red Cell Distribution Width 13.1, Platelet Count 307, Mean Platelet Volume 10.7H, Sodium Level 135, Potassium Level 3.5L, Chloride Level 106, Carbon Dioxide Level 24, Anion Gap 5, Blood Urea Nitrogen 4L, Creatinine 0.59L, Estimat Glomerular Filtration Rate > 60, BUN/Creatinine Ratio 7, Glucose Level 94, Uric Acid 3.5, Calcium Level 8.7, Total Bilirubin 0.6, Aspartate Amino Transf (AST/SGOT) 12, Alanine Aminotransferase (ALT/SGPT) 12, Alkaline Phosphatase 118, Lactate Dehydrogenase 333H, Total Protein 6.5, Albumin 3.3 09/18/17 14:43: Urine Protein 13H, Urine Creatinine 29L, Urine Protein/Creatinine Ratio 0.45 09/19/17 05:26: White Blood Count 15.4H, Red Blood Count 2.76L, Hemoglobin 9.2#L, Hematocrit 27L , Mean Corpuscular Volume 99, Mean Corpuscular Hemoglobin 33, Mean Corpuscular Hemoglobin Concent 34, Red Cell Distribution Width 12.9, Platelet Count 279, Mean Platelet Volume 10.5H, Neutrophils (%) (Auto) 76H, Lymphocytes (%) (Auto) 16, Monocytes (%) (Auto) 7, Eosinophils (%) (Auto) 0, Basophils (%) (Auto) 0, Neutrophils # (Auto) 11.7H, Lymphocytes # (Auto) 2.5, Monocytes # (Auto) 1.1H, Eosinophils # (Auto) 0.1, Basophils # (Auto) 0.0 YURIY KEENE DO Sep 19, 2017 08:40
[2017-09-19] MEDS: DOCUSATE SODIUM 100 MG (COLACE) CAP PO SCH ×2 (09:28→21:14)
[2017-09-19] MEDS: LABETALOL 200 MG (NORMODYNE) TAB PO SCH ×2 (09:28→21:14)
[2017-09-19 09:31] VITALS: BP 147/91
--- NOTE | 2017-09-19 09:49 | Anesthesia-Regional Post-Op ---
Regional Patient Condition Mental Status: Alert, Oriented x3 Circulation: Same as Pre-Op Headache: Absent Sensation: Full Recovery Motor Block: Absent Post Op Complications Complications None Follow Up Care/Instructions Patient Instructions None needed. Anesthesia/Patient Condition Patient is doing well, no complaints, stable vital signs, no apparent adverse anesthesia problems. No complications reported per nursing. D/C home per [facility] Criteria: No MELONIE GARZON CRNA Sep 19, 2017 09:48
[2017-09-19] MEDS ORDERED: IBUPROFEN 600 MG (MOTRIN) TAB PO ONE (11:34)
[2017-09-19 15:00] VITALS: BP 135/77
[2017-09-19] MEDS: IBUPROFEN 600 MG (MOTRIN) TAB PO SCH ×2 (15:25→18:49)
[2017-09-19 21:00] VITALS: BP 131/83
[2017-09-20] MEDS: IBUPROFEN 600 MG (MOTRIN) TAB PO SCH ×2 (00:54→06:42)
[2017-09-20 02:50] VITALS: BP 123/71
[2017-09-20 08:17] VITALS: BP 133/79
[2017-09-20] MEDS: LABETALOL 200 MG (NORMODYNE) TAB PO SCH (08:19)
[2017-09-20] MEDS: DOCUSATE SODIUM 100 MG (COLACE) CAP PO SCH (08:19)
[2017-09-20] MEDS: HYDROcodone/APAP 5 MG/325 MG (LORTAB) TAB PO PRN (08:25)
--- NOTE | 2017-09-20 08:45 | Postpartum Progress Note ---
Note Note Day #2 Subjective: Patient is without complaints. Ambulating, voiding. Tolerating a regular diet without nausea or vomiting. Normal lochia. Pain is well controlled with oral pain medications. Denies christopher, cp, sob. Objective: Vital Sign - Last 24 Hours 09/19/17 09/19/17 09/19/17 09/20/17 09:31 15:00 21:00 00:00 Temp 98.7 98.4 96.6 Pulse 100 103 110 Resp 20 20 18 18 B/P (MAP) 147/91 (109) 135/77 (96) 131/83 (99) Pulse Ox 96 O2 Delivery Room Air Room Air Room Air Room Air 09/20/17 09/20/17 02:50 08:17 Temp 97.2 96.5 Pulse 88 96 Resp 18 18 B/P (MAP) 123/71 (88) 133/79 (97) Pulse Ox 97 O2 Delivery Room Air Room Air Intake and Output 09/19/17 09/19/17 09/20/17 15:00 23:00 07:00 Intake Total 750 ml 600 ml Output Total 575 ml 1000 ml Balance 175 ml -400 ml Physical Exam: General - Alert and oriented, no apparent distress Abdomen - Soft, appropriately tender to palpation, non-distended, fundus firm at umbilicus Extremities - no edema, negative Jose's bilaterally Incision- c/d/i Assessment: POD 2 PLTCS- Breech presentation Suspected partial abruption Mild PreE Acute blood loss anemia Plan: Routine care. Encourage breast feeding. Encourage ambulation. Ferrous sulfate supplementation. Plan for discharge today on labetalol, hypotensive precautions and PreE precautions reviewed Vitals - Labs Vital Signs - I&O Vital Signs Date Time Temp Pulse Resp B/P (MAP) Pulse Ox O2 Delivery O2 Flow Rate FiO2 09/20/17 08:17 96.5 96 18 133/79 (97) 97 Room Air 09/20/17 02:50 97.2 88 18 123/71 (88) Room Air 09/20/17 00:00 18 Room Air 09/19/17 21:00 96.6 110 18 131/83 (99) 96 Room Air 09/19/17 15:00 98.4 103 20 135/77 (96) Room Air 09/19/17 09:31 98.7 100 20 147/91 (109) Room Air I & O 09/20/17 07:00 Intake Total 1350 ml Output Total 1575 ml Balance -225 ml YURIY KEENE DO Sep 20, 2017 8:45 am
== END 2017-09-20 11:35 | disposition home or self-care (01) | DRG 765 ==
LOC: LDRP 19:00
PROVIDERS: ADMIT Family Medicine; ATTEND Family Medicine
PROC: 10D00Z1 Extraction of Products of Conception, Low, Open Approach (ICD-10-PCS; principal; 2017-09-17)
PROC: 0UT70ZZ Resection of Bilateral Fallopian Tubes, Open Approach (ICD-10-PCS; 2017-09-17)
PROC: 3E0P7GC Introduction of Other Therapeutic Substance into Female Reproductive, Via Natural or Artificial Opening (ICD-10-PCS; 2017-09-17)
DX: O64.8XX0 Obstructed labor due to other malposition and malpresentation, not applicable or unspecified (principal); O13.4 Gestational [pregnancy-induced] hypertension without significant proteinuria, complicating childbirth; O14.04 Mild to moderate pre-eclampsia, complicating childbirth; O45.93 Premature separation of placenta, unspecified, third trimester; O90.81 Anemia of the puerperium; D62 Acute posthemorrhagic anemia; Z37.0 Single live birth; Z3A.38 38 weeks gestation of pregnancy; Z40.03 Encounter for prophylactic removal of fallopian tube(s); Z23 Encounter for immunization
CPT/HCPCS: 36415; 80053; 82570; 83615; 84156; 84550; 85007; 85025; 85027; 86850; 86900; 86901; 90715; 94664